=== PATIENT | female | born 1950 | race Caucasian/White ===

== ENCOUNTER 2018-08-14 19:29 | Emergency (ER) | payer SELFPAY ==
[2018-08-14] MEDS: FLUORESCEIN STRIP RIGHT EYE (21:21)
[2018-08-14] MEDS: IBUPROFEN 600 MG TAB PO (21:21)
== END 2018-08-14 23:52 | disposition home or self-care (01) ==
LOC: FTE 23:52
DX: S00.211A Abrasion of right eyelid and periocular area, initial encounter (principal); R51 Headache; W22.8XXA Striking against or struck by other objects, initial encounter; Y92.9 Unspecified place or not applicable
CPT/HCPCS: 70450; 70480; 99284-25